=== PATIENT | male | born 1965 | race Caucasian/White ===

== ENCOUNTER 2022-07-29 18:37 | Emergency (ER) | payer SELFPAY ==
[~2022-07-29] VITALS: Ht 157.5 cm; Wt 80.0 kg
[2022-07-30 03:58] VITALS: BP 113/85
== END 2022-07-30 05:00 | disposition home or self-care (01) ==
LOC: ER 18:37
DX: F10.129 Alcohol abuse with intoxication, unspecified (principal); S09.8XXA Other specified injuries of head, initial encounter; W01.198A Fall on same level from slipping, tripping and stumbling with subsequent striking against other object, initial encounter; Y93.89 Activity, other specified; Y92.480 Sidewalk as the place of occurrence of the external cause; Y90.9 Presence of alcohol in blood, level not specified
CPT/HCPCS: 99284